=== PATIENT | male | born 2000 ===

== ENCOUNTER 2024-12-05 12:44 | Outpatient (AMB) | payer OTHER, SELFPAY ==
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
--- OUTSIDE RECORDS SUMMARY | 2024-12-05 16:03 | XMS_ITS | Clinical Summary ---
Author Organization [facility] Address [address] [place] [address] Care Team Providers Care State Tested Nursing Assistant Name Role Phone Unavailable Primary Care Provider Unavailabl e Social History Tobacco Use Types Packs/Day Years Used Date Smoking Tobacco: Never Assessed Sex and Gender Information Value Date Recorded Sex Assigned at Not on file Legal Sex Male 2:46 PM EDT Gender Identity Not on file Sexual Orientation Not on file Plan of Treatment Health Maintenance Due Date Last Done Comments Hepatitis C Virus Screening 2002 HIV Screening 2015 HPV Vaccines (1 - Male 3-dos e series) 2017 DTaP/Tdap/Td Vaccines (1 - Tdap) 2021 Hepatitis B Vaccines (1 of 3 - 19+ 3-dose series) 2021 COVID-19 Vaccine (1 - 2023-2 5 season) 2024 Pneumococcal Vaccine: Pediat janet (0-5 Years) and At-Risk Patients (6 to 49 Years) Aged Out No longer eligible b ased on patient's age to complete this topic
--- OUTSIDE RECORDS SUMMARY | 2024-12-05 16:03 | XMS_ITS ---
Author Name [facility] Organization Unknown Care Team Organization Name Specialty Phone Email Start Date End Da te [facility] Petty Chambers Primary Care 08/13/20222023 [facility] Elroy Hope Primary Care 12/16/202109/08
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
== END 2024-12-05 13:09 | disposition home or self-care (01) ==
LOC: HO.HSM 12:45
PROVIDERS: PCP Internal Medicine; Visit Provider Psychiatry & Neurology Neurology
DX: S06.9X9S Unspecified intracranial injury with loss of consciousness of unspecified duration, sequela (principal); F91.9 Conduct disorder, unspecified
CPT/HCPCS: 99214

== ENCOUNTER → 2024-12-05 12:44 | Outpatient (BNVA) | payer OTHER, SELFPAY | PROVIDERS: PCP Internal Medicine; Visit Provider Psychiatry & Neurology Neurology | DX: S06.9X9S Unspecified intracranial injury with loss of consciousness of unspecified duration, sequela (principal); F91.9 Conduct disorder, unspecified | CPT/HCPCS: 99212 ==